=== PATIENT | male | born 1985 | race Caucasian/White ===

== ENCOUNTER → 2023-01-05 08:07 | Outpatient (CLI) | payer OTHER, SELFPAY ==
--- NOTE | ~2023-01-05 | US_ITS ---
Abdominal Sonogram: Real-time sonographic imaging of the abdomen was performed. Clinical History: Hernia Findings: The liver appears normal with no evidence of mass lesion or bile duct dilatation. Main por syeda vein demonstrates normal direction of flow. The spleen is normal in size without evidence of foca l lesion. The gallbladder is well distended, and appears normal with no evidence of gallstone or wal l thickening. The common bile duct measures 4 mm. The visualized pancreas, aorta, and IVC are unrema rkable. The right kidney measures 11.1 cm in length and the left kidney measures 11.3 cm. There is no hydronephrosis or renal calculus. No definite hernia evident at the area of clinical concern. Impression: No definite hernia evident at the area of clinical concern. MR could be pursued for further evaluatio n for underlying mass or subtle hernia not seen sonographically. Reviewed, dictated and finalized at [facility]. Impression: No definite hernia evident at the area of clinical concern. MR could be pursued for further evaluation for underlying mass or subtle hernia not seen sonograph ically.
== END ==
PROVIDERS: PCP Internal Medicine; Visit Provider Clinical Nurse Specialist
DX: Z03.89 Encounter for observation for other suspected diseases and conditions ruled out (principal)
CPT/HCPCS: 76700

== ENCOUNTER 2023-03-16 06:21 | Day surgery (SDC) | payer OTHER, SELFPAY ==
[2023-02-22 10:22] VITALS: BMI 23.6
--- NOTE | 2023-03-16 06:43 | PM.HPGS ---
History of Present Illness History of Present Illness Consent: Risks, benefits, and alternatives have been discussed and questions answered. Patient agrees to proceed with procedure. Chief complaint: Papilloma Left Nasal Passage Narrative: Ever Ocampo is a 38 year old male with a papilloma, 3mm in size in his left nasal passage.He was previously seen by me in my office on 02/15/23. 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 Review of Systems Review of Systems: All systems reviewed & are unremarkable except as noted in HPI and below PMFSH Past Medical History Medical History (Updated 02/15/23 @ 16:25 by Jesse Renteria MD) Allergies Papilloma of nose Surgical History Surgical History [place] teeth extracted (~12/2018) Family History Family History Grandparent Diabetes mellitus Hypertension Depression Anxiety Heart disease Benign enlargement of prostate Paternal Grandfather Bladder cancer Acute myocardial infarction Paternal Grandfather Mother Anxiety Depression Diabetes mellitus Type 2 Sibling Thyroid disorder Diabetes mellitus Type 2 Father Hypertension Benign enlargement of prostate Social History Social History Social History: Caffeine- Soda, 5-6 cups daily Smoking status: Never smoker Second hand tobacco smoke exposure: No Alcohol intake: current Alcohol use details: occassional Substance use: never Substance use type: does not use Lack of Transportation: No Lack of Food: Never True Current Housing: I Have Housing Concerned About Future Housing: No Difficulty Paying Gas/Electric Bills: No Difficulty Paying for Meds: No Currently Unemployed: No Education: High School Diploma/GED Difficulty w/ Childcare or Family Care: No Living arrangements: with family Spiritual care concerns: No Meds Home Medications and Allergies Home Medications Medication Instructions Recorded Confirmed Type No Home Medications 02/15/23 02/22/23 History Allergies Allergy/AdvReac Type Severity Reaction Status Date / Time No Known Allergies Allergy Verified 03/16/23 07:18 Assessment and Plan Assessment and plan (1) Papilloma of nose: Code(s): D23.39 - Other benign neoplasm of skin of other parts of face Status: Acute Plan remove papilloma, send for pathology. schedule a post-op visit.
--- NOTE | 2023-03-16 06:44 | WPDHPUPDATE1 ---
History and Physical Update Update Date/Time: 03/16/23 06:44 History and Physical has been reviewed, including an updated exam of the patient. There are NO changes in the patient's condition. Risks, benefits, and alternatives have been discussed and questions answered. Patient agrees to proceed with procedure.
--- NOTE | 2023-03-16 06:48 | WPDHPUPDATE1 ---
History and Physical Update Update Date/Time: 03/16/23 06:48 History and Physical has been reviewed, including an updated exam of the patient. There are NO changes in the patient's condition. Risks, benefits, and alternatives have been discussed and questions answered. Patient agrees to proceed with procedure.
[2023-03-16 07:21] VITALS: BP 123/95; PULSE 70; RESP 18; TEMP 36.4; O2SAT 100
--- NOTE | 2023-03-16 07:46 | WPDHPUPDATE1 ---
History and Physical Update Update Date/Time: 03/16/23 07:46 History and Physical has been reviewed, including an updated exam of the patient. There are NO changes in the patient's condition. Risks, benefits, and alternatives have been discussed and questions answered. Patient agrees to proceed with procedure.
--- NOTE | 2023-03-16 07:57 | W.PM.PROC2 ---
Procedure Note - Detailed Date of Procedure 03/17/23 Pre-op Diagnosis Papilloma Left Nasal Passage Post-op Diagnosis Same Procedure Performed Patient was prepped and draped in usual fashion after induction of local anesthesia with 1% xylocaine [id number] epinephrine a sharp scissors was used to excise the papilloma the base cauterized no stitches inserted patient returned to outpatient good condition Surgeon Jesse Renteria MD Anesthesia Local Description of Procedure Papilloma was removed with Scissors and electric cauterization, nasal cavity was packed with ointment. Drains No Packing Yes Pathology Yes Complications No immediate complications Condition Stable
[2023-03-16 08:00] VITALS: BP 112/72; PULSE 71; RESP 18; O2SAT 98
[2023-03-16] MEDS: LIDO 1%/EPINEPHRINE 1:100,000 50 ML VIAL INFILTRATE (08:02)
[2023-03-16 08:10] VITALS: BP 112/77; RESP 16; O2SAT 98
--- NOTE | 2023-03-16 08:11 | W.PM.PROC2 ---
Procedure Note - Detailed Date of Procedure 03/17/23 Pre-op Diagnosis Papilloma Left Nasal Passage Post-op Diagnosis Same Procedure Performed Removal of Papilloma of left nasal passage Surgeon Jesse Renteria MD Anesthesia Local Description of Procedure Patient was given a local anesthetic, papilloma was removed with scissors and electric cauterization. Nasal cavity was packed with ointment.
[2023-03-16 08:13] VITALS: BP 122/84; PULSE 69; RESP 15; TEMP 36.9; O2SAT 99
== END 2023-03-16 08:26 | disposition home or self-care (01) ==
PROVIDERS: PCP Internal Medicine; Visit Provider Otolaryngology
PROC: (CPT 30117; principal; 2023-03-16 08:00)
DX: D14.0 Benign neoplasm of middle ear, nasal cavity and accessory sinuses (principal)
CPT/HCPCS: 30117

== ENCOUNTER 2023-03-16 08:14 | Outpatient (NON) | payer OTHER, SELFPAY | END 2023-03-16 08:15 | disposition home or self-care (01) | PROVIDERS: PCP Internal Medicine; Visit Provider Otolaryngology | DX: D23.39 Other benign neoplasm of skin of other parts of face (principal) | CPT/HCPCS: 88305 ==